=== PATIENT | female | born 1965 | race Caucasian/White ===

== ENCOUNTER 2016-12-01 06:04 | Emergency (ER) | payer SELFPAY ==
[~2016-12-01] VITALS: Ht 162.6 cm; Wt 110.8 kg
[~2016-12-01 06:04] MED LIST: IBUP400 PO
[2016-12-01 06:17] VITALS: BP 144/91; PULSE 83; RESP 20; TEMP 98.4; O2SAT 97
[2016-12-01] MEDS ORDERED: LEVO125T4 PO (06:45)
--- NOTE | 2016-12-01 07:07 | PD ---
HPI . Low back pain Chief Complaint: Back/ Neck Pain or Injury Time Seen by Provider: 07:01 Travel History International Travel<30 days: No Contact w/Intl Traveler<30days: No Traveled to known affect area: No History of Present Illness HPI Patient presents with chief complaint of low back pain. She reports low back pain for years. She states that she just did too much yesterday causing exacerbation of her low back pain. She reports diffuse low back pain which is exacerbated by tugging, pulling, pushing or lifting. Pain is improved by soaking in a warm tub of water. Current pain is rated at 10/10. She states that she has been taking ibuprofen, 1600 mg per day with no relief of her symptoms. She also states that she was recently prescribed physical therapy which she did for a while but which did not help. [facility] Past Medical History Diminished Hearing: No Medical other: Yes (CHRONIC BACK PAIN) Immunizations Current: No Tetanus Vaccination: Unknown Influenza Vaccination: No ?: Not LMP: LAST JANUARY Past Surgical History Cholecystectomy: Yes Social History Alcohol Use: Yes (OCC) Tobacco Use: Yes (/2 PPD) Substance Use: No Allergies-Medications (Allergen,Severity, Reaction): Coded Allergies: Sulfa (Verified Allergy, Severe, Anaphylaxis, 12/01/16) Penicillin (Unverified Adverse Reaction, Intermediate, Anaphylaxis, ) Reported Meds & Prescriptions Reported Meds & Active Scripts Active Reported Levothyroxine (Levothyroxine Sodium) 125 Mcg Tab 125 Mcg PO DAILY Review of Systems Except as stated in HPI: all other systems reviewed are Neg General / Constitutional: No: Fever, Chills Genitourinary: No: Incontinence Musculoskeletal: Positive: Pain (diffuse low back pain) Neurologic: No: Weakness, Paresthesia, Incontinence Physical Exam Narrative GENERAL: Awake and alert and in no acute distress. SKIN: Warm and dry. HEAD: Atraumatic. Normocephalic. EYES: Pupils equal and round. NECK: Trachea midline. CARDIOVASCULAR: Regular rate and rhythm. RESPIRATORY: No accessory muscle use. MUSCULOSKELETAL: No obvious deformities. No edema. Diffuse tenderness to palpation in the low back. No point tenderness. NEUROLOGICAL: Awake and alert. No obvious cranial nerve deficits. Motor grossly within normal limits. Normal speech. PSYCHIATRIC: Appropriate mood and affect; insight and judgment normal. Data Data Last Documented VS Vital Signs Date Time Temp Pulse Resp B/P Pulse Ox O2 Delivery O2 Flow Rate FiO2 12/01/16 06:17 98.4 83 20 144/91 97 MDM Medical Decision Making Medical Screen Exam Complete: Yes Emergency Medical Condition: Yes Medical Record Reviewed: Yes (from 2013 "MRI of the lumbar spine 1. Moderate stenosis at the L3-4 level caused by a combination of posterior subluxation of L3 on L4, diffuse disc bulge, and an inferiorly directed disc protrusion/ extrusion at the right lateral recess root. ) Differential Diagnosis Differential diagnosis includes but is not limited to muscular low back pain, DDD, spinal stenosis, epidural abscess, sciatica, kidney infection or stone. Narrative Course Patient presents with acute exacerbation of chronic low back pain. She has known degenerative disc disease. I will treat her with a steroid taper, Ultram and Flexeril and have her follow up with the [place] [facility]. Diagnosis Primary Impression: Low back pain Qualified Code: M54.5 - Chronic low back pain without sciatica, unspecified back pain laterality Patient Instructions: Acute Low Back Pain (DC), General Instructions Med/Other Pt SpecificInfo: Prescription(s) given Scripts Cyclobenzaprine (Flexeril)10 Mg Tab10 Mg PO TID #30 TAB Ref 0 Prov:Eloise Santiago MD 12/01/16 Tramadol (Ultram)50 Mg Tab50 Mg PO Q4H PRN (PAIN) #12 TAB Ref 0 Prov:Eloise Santiago MD 12/01/16 Prednisone (48) 10 mg tab Dose Pack 10 Mg Dspk10 Mg PO DIRECTED #1 DSPK Ref 0 Prov:Eloise Santiago MD 12/01/16 Disposition: 01 DISCHARGE HOME Condition: Stable Eloise Santiago MD Dec 01, 2016 07:07
[2016-12-01] MEDS ORDERED: ULTR50TA5 PO (07:13)
[2016-12-01] MEDS ORDERED: PRED10PA2 PO (07:13)
[2016-12-01] MEDS ORDERED: CYCL1TAB29 PO (07:13)
== END 2016-12-01 07:21 | disposition home or self-care (01) ==
LOC: PHED 06:04
DX: M54.5 Low back pain (principal)
CPT/HCPCS: 99284